=== PATIENT | female | born 1955 | race Caucasian/White ===

== ENCOUNTER 2018-11-22 19:17 | Emergency (ER) | payer BC, SELFPAY ==
[2018-11-22 19:18] VITALS: BP 149/96; PULSE 88; RESP 18; TEMP 36.4; O2SAT 96; BMI 40.1
--- NOTE | 2018-11-22 20:22 | CT_ITS ---
STUDY: CT CERVICAL SPINE WITHOUT CONTRAST REASON FOR EXAM: Female, 63 years old. Trauma RADIATION DOSAGE (If Supplied By Facility): CTDIvol = ( 15.18 ) mGy, DLP = ( 291.75 ) mGycm TECHNIQUE: High resolution transaxial imaging was performed without contrast material. Sagittal and coronal images were reconstructed. Individualized dose optimization techniques were used for this CT. COMPARISON: None FINDINGS: Normal craniovertebral junction. Normal anterior atlantoaxial articulation. Normal odontoid process. Normal cervical lordosis. Normal vertebral bodies and posterior osseous elements. C2-3: Normal endplates. Normal disc height and morphology. Normal central canal and intervertebral neuroforamina. C3-4: Mild spurring at the endplates. Normal disc height and morphology. Normal central canal and intervertebral neuroforamina. C4-5: Mild spurring at the endplates. Normal disc height and morphology. Normal central canal and intervertebral neuroforamina. C5-6: Mild spurring at the endplates. Normal disc height and morphology. Normal central canal and intervertebral neuroforamina. C6-7: Normal endplates. Normal disc height and morphology. Normal central canal and intervertebral neuroforamina. C7-T1: Normal endplates. Normal disc height and morphology. Normal central canal and intervertebral neuroforamina. Normal visualized soft tissue structures. CT/Spine Cervical without Contras IMPRESSION: Mild degenerative changes without acute bony injury of the cervical spine. Electronically Signed: Sharad Bearden DO at 21:06 EDT Tel [phone], Service support ,
--- NOTE | 2018-11-22 20:22 | CT_ITS ---
STUDY: CT BRAIN WITHOUT CONTRAST REASON FOR EXAM: Female, 63 years old. Trauma RADIATION DOSAGE (If Supplied By Facility): CTDIvol = ( 44.99 ) mGy, DLP = ( 812.98 ) mGycm TECHNIQUE: Transaxial CT imaging of the brain was performed without administration of intravenous contrast material. Individualized dose optimization techniques were used for this CT. COMPARISON: No relevant priors. FINDINGS: Right frontal scalp injury. Normal calvarium. Normal size ventricles and extra-axial spaces for the patient's age. Normal white matter tracts of the cerebral hemispheres. Normal basal ganglia and thalami. Normal brainstem. Normal cerebellum. There is no intracranial hemorrhage. There are no findings of an acute ischemic infarction. Normal visualized paranasal sinuses. CT/Brain/Head without Contrast IMPRESSION: Normal unenhanced CT scan of the brain. Right frontal scalp injury. Electronically Signed: Sharad Bearden DO at 20:55 EDT Tel [phone], Service support ,
--- NOTE | 2018-11-22 20:22 | ED.VIS.FALL ---
History of Present Illness Chief Complaint: Laceration Informant: Patient Occurred: Today, Hours - 1 Mechanism/Context: Same level fall, Trip Quality of Pain: Aching Current Severity: Mild Maximum Severity: Mild Associated Symptoms: Negative for: Parasthesias, Weakness, Loss of function, Inability to ambulate, Loss of consciousness, Amnesia Narrative: Patient tripped on concrete and fell hitting her head. She had no loss of consciousness. She bumped her right knee but it is not hurting her and she has been ambulatory on it. Last tetanus was 2-3 years ago. She sustained a major laceration to her forehead. She states it hurts there, she has a minimal headache but she has more pain on her scalp than inside of her head. No changes in her vision or vision symptoms or eye pain. She is on no anticoagulants. No other injuries, but she has some pain in her right neck only when she turns her head. She was placed in c-collar by EMS. Past Medical History - Allergies and Home Meds Allergies/Adverse Reactions: Allergies No Known Allergies Allergy (Verified 11/22/18 19:20) Primary Care Physician: Sherwin Torres DO [Primary Care Provider] - Past Medical History: None Lives: Spouse/ Significant Other Smoking Status: Never smoker Review of Systems General: Denies: Chills, Fever Eyes: Denies: Visual changes - bilaterally, Diplopia ENT: Denies: Rhinorrhea, Sore throat Cardiovascular: Denies: Chest pain, Palpitations Respiratory: Denies: Dyspnea, Cough, Dyspnea on exertion Gastrointestinal: Denies: Abdominal pain, Nausea, Vomiting, Diarrhea, Melena, Hematochezia Genitourinary: Denies: Dysuria, Hematuria, Frequency Musculoskeletal: Denies: Back pain, Extremity Pain Skin: Reports: Abrasions, Wounds. Denies: Rash Neurological: Denies: Headache, Weakness, Numbness Physical Exam Vital Signs/Narrative: Vital Signs Temp Pulse Resp BP Pulse Ox 11/22/18 19:18 97.5 F L 88 18 149/96 H 96 Inital Vital Signs reviewed: Yes General: Well nourished, Well developed, Obese Head: Normocephalic, Trauma - Right forehead and frontal scalp contusion, abrasion, no crepitance or depression. Forehead laceration. Eyes: Perrl, EOMI - Without pain or entrapment ENT: TM's clear, No hemotympanum or drainage, Nasal trauma - Abrasion, nontender, - - Midface stable, nontender, no infraorbital hypoesthesia. Tenderness at laceration within the right eyebrow, it is fairly deep and there is associated hematoma. No periorbital ecchymosis, no exophthalmos or proptosis. Neck: Nontender, Full ROM Cardiovascular: Regular rate, Regular rhythm, No murmurs Respiratory: No distress, CTA bilaterally, Chest nontender Abdomen: Soft, Nontender, Nondistended, Normal bowel sounds Back: Nontender Extremeties: Minor contusion without tenderness anterior right knee, no bony tenderness, full range of motion, all ligaments stable. Otherwise, extremities are atraumatic and full range of motion throughout. Skin: Normal color, No rash Neurological: Alert, Oriented x3, Cranial nerves II-XII grossly intact, Normal Strength, Normal Sensation, - - GCS 15 Psychological: Normal affect Diagnostic/Tx/Re-eval Clinical Impression(s) from Imaging Studies Brain CT 11/22/18 20:22 IMPRESSION: Normal unenhanced CT scan of the brain. Right frontal scalp injury. Electronically Signed: Sharad Bearden DO at 20:55 EDT Tel [phone], Service support , Cervical Spine CT 11/22/18 20:22 IMPRESSION: Mild degenerative changes without acute bony injury of the cervical spine. Electronically Signed: Sharad Bearden DO at 21:06 EDT Tel [phone], Service support , - Medical Decision Making CTs are negative, her cervical spine was cleared she has full range of motion with pain in both directions but no neurologic symptoms. She was monitored in the ED for several hours because of volume, she remained clinically and hemodynamically stable. Her laceration was sutured, follow-up for removal in 5-7 days, she is comfortable with this plan. She has a ride home. Procedures - Lacerations Right eyebrow/forehead Length: 6 cm Depth: Sub Q Shape: Linear Prep: Sterile Conditions, Chlorhexadine, - - irrigated under pressure; no gross wound contamination Laceration Repair: Lidocaine with epi - 5cc Irrigated (ml): 60 Number of Sutures/[place]: 6 Suture Information: Ethilon, Simple, 6-0 Comment: tolerated well. no complications. ED Disposition - Plan for ED Patient: Disposition: Home or Assisted Living Diagnosis: Closed head injury without loss of consciousness, Laceration of forehead, Scalp abrasion, non-infected, Fall from slip, trip, or stumble Instructions: ED Laceration Facial Sutr Tape Referrals: Sherwin Torres DO [Primary Care Provider] - (5-7 days for suture removal)
--- NOTE | 2018-11-22 20:30 | ED.DCSUM_ITS ---
History of Present Illness Chief Complaint: Laceration Informant: Patient Occurred: Today, Hours - 1 Mechanism/Context: Same level fall, Trip Quality of Pain: Aching Current Severity: Mild Maximum Severity: Mild Associated Symptoms: Negative for: Parasthesias, Weakness, Loss of function, Inability to ambulate, Loss of consciousness, Amnesia Narrative: Patient tripped on concrete and fell hitting her head. She had no loss of consciousness. She bumped her right knee but it is not hurting her and she has been ambulatory on it. Last tetanus was 2-3 years ago. She sustained a major laceration to her forehead. She states it hurts there, she has a minimal headache but she has more pain on her scalp than inside of her head. No changes in her vision or vision symptoms or eye pain. She is on no anticoagulants. No other injuries, but she has some pain in her right neck only when she turns her head. She was placed in c-collar by EMS. Past Medical History - Allergies and Home Meds Allergies/Adverse Reactions: Allergies No Known Allergies Allergy (Verified 11/22/18 19:20) Primary Care Physician: Sherwin Torres DO [Primary Care Provider] - Past Medical History: None Lives: Spouse/ Significant Other Smoking Status: Never smoker Review of Systems General: Denies: Chills, Fever Eyes: Denies: Visual changes - bilaterally, Diplopia ENT: Denies: Rhinorrhea, Sore throat Cardiovascular: Denies: Chest pain, Palpitations Respiratory: Denies: Dyspnea, Cough, Dyspnea on exertion Gastrointestinal: Denies: Abdominal pain, Nausea, Vomiting, Diarrhea, Melena, Hematochezia Genitourinary: Denies: Dysuria, Hematuria, Frequency Musculoskeletal: Denies: Back pain, Extremity Pain Skin: Reports: Abrasions, Wounds. Denies: Rash Neurological: Denies: Headache, Weakness, Numbness Physical Exam Vital Signs/Narrative: Vital Signs Temp Pulse Resp BP Pulse Ox 11/22/18 19:18 97.5 F L 88 18 149/96 H 96 Inital Vital Signs reviewed: Yes General: Well nourished, Well developed, Obese Head: Normocephalic, Trauma - Right forehead and frontal scalp contusion, abrasion, no crepitance or depression. Forehead laceration. Eyes: Perrl, EOMI - Without pain or entrapment ENT: TM's clear, No hemotympanum or drainage, Nasal trauma - Abrasion, nontender, - - Midface stable, nontender, no infraorbital hypoesthesia. Te nderness at laceration within the right eyebrow, it is fairly deep and there is associated hematoma. No periorbital ecchymosis, no exophthalmos or proptosis. Neck: Nontender, Full ROM Cardiovascular: Regular rate, Regular rhythm, No murmurs Respiratory: No distress, CTA bilaterally, Chest nontender Abdomen: Soft, Nontender, Nondistended, Normal bowel sounds Back: Nontender Extremeties: Minor contusion without tenderness anterior right knee, no bony tenderness, full range of motion, all ligaments stable. Otherwise, extremities are atraumatic and full range of motion throughout. Skin: Normal color, No rash Neurological: Alert, Oriented x3, Cranial nerves II-XII grossly intact, Normal Strength, Normal Sensation, - - GCS 15 Psychological: Normal affect Diagnostic/Tx/Re-eval Clinical Impression(s) from Imaging Studies Brain CT 11/22/18 20:22 IMPRESSION: Normal unenhanced CT scan of the brain. Right frontal scalp injury. Electronically Signed: Sharad Bearden DO at 20:55 EDT Tel [phone], Service support , Cervical Spine CT 11/22/18 20:22 IMPRESSION: Mild degenerative changes without acute bony injury of the cervical spine. Electronically Signed: Sharad Bearden DO at 21:06 EDT Tel [phone], Service support , - Medical Decision Making CTs are negative, her cervical spine was cleared she has full range of motion with pain in both directions but no neurologic symptoms. She was monitored in the ED for several hours because of volume, she remained clinically and hemodynamically stable. Her laceration was sutured, follow-up for removal in 5- 7 days, she is comfortable with this plan. She has a ride home. Procedures - Lacerations Right eyebrow/forehead Length: 6 cm Depth: Sub Q Shape: Linear Prep: Sterile Conditions, Chlorhexadine, - - irrigated under pressure; no gross wound contamination Laceration Repair: Lidocaine with epi - 5cc Irrigated (ml): 60 Number of Sutures/[place]: 6 Suture Information: Ethilon, Simple, 6-0 Comment: tolerated well. no complications. ED Disposition - Plan for ED Patient: Disposition: Home or Assisted Living Diagnosis: Closed head injury without loss of consciousness, Laceration of forehead, Scalp abrasion, non-infected, Fall from slip, trip, or stumble Instructions: ED Laceration Facial Sutr Tape Referrals: Sherwin Torres DO [Primary Care Provider] - (5-7 days for suture removal)
[2018-11-23 00:01] VITALS: BP 130/78; PULSE 80; RESP 18; O2SAT 98
== END 2018-11-23 00:09 | disposition home or self-care (01) ==
PROVIDERS: Emergency Provider Emergency Medicine; Family Provider Student in an Organized Health Care Education/Training Program; PCP Student in an Organized Health Care Education/Training Program
DX: S01.81XA Laceration without foreign body of other part of head, initial encounter (principal); S01.111A Laceration without foreign body of right eyelid and periocular area, initial encounter; S00.01XA Abrasion of scalp, initial encounter; S80.01XA Contusion of right knee, initial encounter; M54.2 Cervicalgia; R40.2410 Glasgow coma scale score 13-15, unspecified time; W01.0XXA Fall on same level from slipping, tripping and stumbling without subsequent striking against object, initial encounter; Y93.9 Activity, unspecified; Y92.9 Unspecified place or not applicable; E66.9 Obesity, unspecified
CPT/HCPCS: 12014; 70450; 72125; 99285

== ENCOUNTER 2019-01-06 19:10 | Emergency (ER) | payer BC, SELFPAY ==
[2019-01-06 19:10] VITALS: BP 205/96; PULSE 96; RESP 16; TEMP 36.9; O2SAT 97; BMI 40.8
--- NOTE | 2019-01-06 19:43 | RAD_ITS ---
STUDY: X-RAY - RIGHT HAND REASON FOR EXAM: Female, 63 years old. Hand pain TECHNIQUE: 3 view(s) of the hand. COMPARISON: None. FINDINGS: Age-related degenerative changes. No acute fracture or dislocation. Normal mineralization RAD/Hand Min 3 Views IMPRESSION: Degenerative changes without acute finding Electronically Signed: Juan Sheets DO at 20:30 EDT Tel , Service support ,
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
[2019-01-06 21:31] VITALS: BP 153/84; PULSE 95; RESP 18; O2SAT 98
== END 2019-01-06 21:33 | disposition home or self-care (01) ==
PROVIDERS: Emergency Provider Emergency Medicine; Family Provider Student in an Organized Health Care Education/Training Program; PCP Student in an Organized Health Care Education/Training Program
DX: S60.222A Contusion of left hand, initial encounter (principal); S60.221A Contusion of right hand, initial encounter; S60.512A Abrasion of left hand, initial encounter; S60.511A Abrasion of right hand, initial encounter; S50.311A Abrasion of right elbow, initial encounter; V43.52XA Car driver injured in collision with other type car in traffic accident, initial encounter; Y93.89 Activity, other specified; Y92.9 Unspecified place or not applicable; I10 Essential (primary) hypertension; F41.9 Anxiety disorder, unspecified; Z79.899 Other long term (current) drug therapy
CPT/HCPCS: 73130; 99284

== ENCOUNTER 2019-01-08 13:53 | Emergency (ER) | payer BC, SELFPAY ==
[2019-01-08 13:54] VITALS: BP 160/95; PULSE 94; RESP 16; TEMP 36.7; O2SAT 98; BMI 39.2
[2019-01-08] MEDS: HYDROcodone Bitartrate/Apap 5/325 Tablet PO (14:18)
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
--- NOTE | 2019-01-08 15:08 | DCINST.ED_ITS ---
ED Disposition - Plan for ED Patient: Instructions: BACK PAIN (Acute or Chronic) Prescriptions: Hydrocodone Bitart/Apap 5-325 [[place] 5MG-325MG] 1 tab PO Q6H PRN PRN 2 Days #8 tab PRN Reason: Pain Prescription Printed Referrals: Sherwin Torres DO [Primary Care Provider] -
[2019-01-08 15:24] VITALS: BP 156/79; PULSE 79; RESP 18; O2SAT 95
== END 2019-01-08 15:26 | disposition home or self-care (01) ==
LOC: ED 14:57
PROVIDERS: Emergency Provider Emergency Medicine; Family Provider Student in an Organized Health Care Education/Training Program; PCP Student in an Organized Health Care Education/Training Program
DX: S16.1XXA Strain of muscle, fascia and tendon at neck level, initial encounter (principal); V89.2XXA Person injured in unspecified motor-vehicle accident, traffic, initial encounter; Y93.9 Activity, unspecified; Y92.9 Unspecified place or not applicable; M47.812 Spondylosis without myelopathy or radiculopathy, cervical region; M25.512 Pain in left shoulder; I10 Essential (primary) hypertension; F32.9 Major depressive disorder, single episode, unspecified; F41.9 Anxiety disorder, unspecified; Z79.899 Other long term (current) drug therapy
CPT/HCPCS: 72040; 72072; 73030; 99283

== ENCOUNTER 2021-02-04 10:13 | Emergency (ER) | payer MEDICARE, SELFPAY ==
[2021-02-04 10:15] VITALS: BP 136/84; BP 145/73; PULSE 88; PULSE 91; RESP 16; TEMP 36.8; O2SAT 96; O2SAT 97; BMI 40.1
--- NOTE | 2021-02-04 10:23 | ED.VIS.LOWEX ---
HPI History of Present Illness Chief Complaint: Lower Extremity Injury Detail of Chief Complaint: Atraumatic right knee pain Informant: patient Occured/Mechanism Mechanism/Context: No injury and No blunt trauma Onset/Context/Timing Onset: Today Context: Sudden Onset Timing: Continuous Quality of Pain: Sharp Current Severity: Mild Maximum Severity: Mild Associated Symptoms Associated Symptoms: Negative for Parasthesia and Weakness Narrative Narrative: 65-year-old female has had a prior left knee replacement. Today she was getting out of bathtub and when she lifted her right leg she twisted the knee and is now complaining of right knee pain. She denies any fall. She did not go down. She denies any other injuries. Think she did this when she was 15 but no other times. She is never had any surgery to the right knee. Prior to today she said her right knee felt fine. It is more uncomfortable to try to walk on it. She denies any fever. Prior similar symptoms: No Recent Illness/Hospitalization: No PFSH PFSH Medical History Anxiety HTN (hypertension) Home Medications bupropion HCl 150 mg PO DAILY 11/22/18 [History Last Taken Unknown] escitalopram oxalate 30 mg PO DAILY 11/22/18 [History Last Taken Unknown] Allergy/AdvReac Type Severity Reaction Status Date / Time bee venom protein (honey bee) Allergy Other Verified 02/04/21 10:14 Surgical History History of appendectomy History of bilateral carpal tunnel release History of cholecystectomy History of left knee replacement Social History Smoking Status: Never smoker ROS ROS ED ROS Narrative Patient denies recent illness. Review of Systems ROS Unobtainable: Denies due to encephalopathy Constitutional Constitutional ED: Denies chills or fever(s) Eyes Eyes: Denies change in vision ENT ENT ED: Denies ear pain or sore throat Cardiovascular Cardiovascular: Denies chest pain Respiratory/Chest Respiratory/Chest: Denies cough or dyspnea Gastrointestinal Gastrointestinal: Denies abdominal pain, diarrhea, nausea or vomiting Genitourinary Genitourinary ED: Denies dysuria Musculoskeletal Musculoskeletal: Denies myalgias Integumentary Denies rash Neurologic Neurologic: Denies headache(s) Psychiatric Psychiatric: Denies depression Endocrine Endocrinology: Denies polyuria Hematologic/Lymphatic Hematologic/Lymphatic: Denies easy bruising Allergic/Immunologic Allergic/Immunologic ED: Denies urticaria EXAM Physical Exam Narrative Exam Narrative: Older female no acute distress. Vital signs stable afebrile. Exam normal except right knee minimal swelling. No ecchymosis or bruising. No redness or warmth. She is able to flex and extend her right knee. She is extension of 180 degrees. ACL PCL, MCL LCL all appear to be intact. There is no bony deformity. She has a normal DP pulse on her right foot. Dorsi plantar flexion is normal on the right. Achilles tendon is intact. Calves nontender no edema. She has normal flexion-extension of the right hip. Left lower extremity is unremarkable she does have a well-healed prior anterior knee surgical incision from a knee replacement. Otherwise exam unremarkable. She has normal motor strength and sensation of both lower extremities. Const Vital Signs: 02/04/21 10:15 Temperature 98.3 F Temperature Source Temporal Pulse Rate 91 Respiratory Rate 16 Blood Pressure 145/73 H Blood Pressure Mean 97 Pulse Ox 97 Oxygen Delivery Method Room Air Positive well nourished; Negative for unkempt General Appearance ED: NAD; Negative for unkempt HEENT Reports moist mucous membranes normocephalic and atraumatic Eyes PERRL Neck full ROM and supple Thyroid: Negative for tender Chest Wall inspection of chest normal and palpation of chest normal Resp normal respiratory effort, no retractions and clear to auscultation bilaterally Auscultation: Negative for rales, rhonchi or wheezes Cardio regular rate, regular rhythm, S1 normal heart sound, S2 normal heart sound and no murmurs GI non-tender, non-distended and no masses Auscultation: normoactive bowel sounds Palpation: soft; Negative for tender, guarding or rebound tenderness present Back/Spine no CVA tenderness General Back: Negative for CVA tenderness Cervical Spine: Negative for cervical spine tenderness Thoracic Spine / Upper Back: Negative for thoracic spinal tenderness Lumbar Spine / Lower Back: Negative for lumbar spinal tenderness Extremity normal to inspection Extremity Narrative: Except mild swelling right knee. She is able to do flexion extension. Can extend to 100 degrees. Can lift her leg off the bed. Quadriceps patellar tendons intact. No bony deformity. No large effusion. Distally the right ankle and foot are neurovascularly intact. She has normal range of motion of the right hip is nontender. Neuro oriented x3 and moves all extremities Sensorium / Orientation: alert, oriented to person, oriented to place and oriented to time; Negative for orientation impaired Psych mental status grossly normal Appearance: Negative for unkempt Skin no wounds Lesions: no lesions Rashes: no rashes Trauma: Negative for abrasion or laceration MDM MDM MDM Narrative Medical decision making narrative: Patient twisted her knee getting out of the tub x-ray being obtained. I suspect she just sprained her knee. Clinically there is no signs of dislocation and I do not feel it will be any fractures on exam. Patient was offered but does not want anything for pain. Repeat exam at 11:05 AM no change. She has good flexion-extension of the knee. There is no significant effusion. We went over her x-ray results. Radiography Diagnostic Testing: Right knee x-ray interpreted by myself 4 views. Shows no acute abnormality. No fracture. No dislocation. Chronic arthritic changes. Good joint space. No acute abnormality to explain her discomfort. Discharge Plan Triage Chief Complaint: Lower Extremity Injury ED Provider: Robin Brown Dx/Rx/DC Orders Clinical Impression: Sprain of knee Instructions: ED Knee Sprain Prescriptions: No Action escitalopram oxalate 20 MG tablet 30 mg PO DAILY RF: 0 bupropion HCl 300 MG tablet extended release 24 hr 150 mg PO DAILY RF: 0 Primary Care Provider: Sherwin Torres Referrals: Sherwin Torres, [Primary Care Provider] - 1 Week if not improving Activity Restrictions/Additional Instructions: Ice and elevate your right knee to decrease pain and swelling. Tylenol for pain. Motrin, Advil or ibuprofen for pain and swelling. Increase activity slowly as tolerated. Use either your walker or crutches at home. Increase weightbearing as you feel comfortable. Follow-up with your doctor if not getting better. Disposition Disposition: Home, Self Care
--- NOTE | 2021-02-04 10:50 | RAD_ITS ---
STUDY: X-RAY - RIGHT KNEE REASON FOR EXAM: Right knee pain, right knee injury. TECHNIQUE: 4 view(s) of the knee. COMPARISON: None. FINDINGS: Normal visualized distal femur. Normal visualized proximal tibia and fibula. Normal proximal tibiofibular articulation. Normal medial femorotibial compartment. There are small marginal osteophytes with preservation of joint space of the lateral femorotibial compartment. There are marginal osteophytes with severe joint space narrowing of the patellofemoral articulation. There is a small joint effusion. There is patellar enthesopathy. RAD/Knee 4 or More Views IMPRESSION: Arthrosis of the patellofemoral compartment. Small joint effusion. Patellar enthesopathy. Electronically Signed: Marvin Haynes MD at 11:19 EDT Tel , Service support ,
[2021-02-04 11:27] VITALS: BP 145/73
== END 2021-02-04 11:35 | disposition home or self-care (01) ==
PROVIDERS: Emergency Provider Emergency Medicine; PCP Student in an Organized Health Care Education/Training Program
DX: S83.91XA Sprain of unspecified site of right knee, initial encounter (principal); X50.1XXA Overexertion from prolonged static or awkward postures, initial encounter; Y93.E1 Activity, personal bathing and showering; Y92.9 Unspecified place or not applicable; Y99.8 Other external cause status; I10 Essential (primary) hypertension; F41.9 Anxiety disorder, unspecified; Z79.899 Other long term (current) drug therapy
CPT/HCPCS: 73564; 99284

== ENCOUNTER 2021-10-30 13:39 | Inpatient (IN) | payer MEDICARE, SELFPAY ==
[2021-10-30] VITALS (11 sets, daily range): BP systolic 111–172; BP diastolic 61–100; PULSE 79–110; RESP 14–22; TEMP 36.4–39.4; O2SAT 95–100; BMI 36.6; BMI 38.5; BMI 39.1
--- NOTE | 2021-10-30 13:41 | CT_ITS ---
STUDY: CT HEAD STROKE PROTOCOL W/O CONTRAST INJECTION REASON FOR EXAM: Female, 66 years old. Neuro deficit, acute, stroke suspected RADIATION DOSAGE (If Supplied By Facility): CTDIvol = ( 47.6 ) mGy, DLP = ( 907.97 ) mGycm TECHNIQUE: Transaxial CT imaging of the brain was performed without administration of intravenous contrast material. Individualized dose optimization techniques were used for this CT. COMPARISON: Comparison is made with prior study dated 11/22/2018. FINDINGS: Normal soft tissue structures. Normal calvarium. Normal size ventricles and extra-axial spaces for the patient''s age. Normal white matter tracts of the cerebral hemispheres. Normal basal ganglia and thalami. Normal brainstem. Normal cerebellum. There is no intracranial hemorrhage. There are no findings of an acute ischemic infarction. Normal visualized paranasal sinuses. ASPECT score: 10 CT/STROKE Brain/Head without Cont IMPRESSION: Normal unenhanced CT scan of the brain. N.B. : The above Results were Read Back by Khanh Rangel MD to Akira Gaines and understanding confirmed on 10/30/2021 13:54:08 (ET). Electronically Signed: Khanh Rangel MD at 13:55 EDT ,
--- NOTE | 2021-10-30 13:41 | CT_ITS ---
STUDY: CTA HEAD AND NECK WITH CONTRAST REASON FOR EXAM: Female, 66 years old. Neuro deficit, acute, stroke suspected RADIATION DOSAGE (If Supplied By Facility): CTDIvol = ( 17.82 ) mGy, DLP = ( 881.24 ) mGycm TECHNIQUE: CT angiography was performed with a multi-detector CT scanner. Data acquisition was obtained from the skull base through the vertex following intravenous administration of IV 75mL [id number]-[id number]. MIP images were reconstructed from the axial data set. Post-processing of the angiographic images was performed, with multiplanar reformation and 3D reconstruction. Individualized dose optimization techniques were used for this CT. COMPARISON: No relevant priors. FINDINGS: Normal bilateral petrous carotid arteries. Normal right cavernous carotid artery with a normal supraclinoid bifurcation. Normal left cavernous carotid artery with a normal supraclinoid bifurcation. Normal right A1 segments of the anterior cerebral artery. Normal left A1 segments of the anterior cerebral artery. Normal intact anterior communicating artery (ACOM). Normal bilateral A2 segments of the anterior cerebral arteries. Normal right M1 and M2 segments of the middle cerebral arteries, with a normal M1 bifurcation. Normal left M1 and M2 segments of the middle cerebral arteries, with a normal M1 bifurcation. There is a persistent origin of the right posterior cerebral artery with absence of the posterior communicating artery (PCOM). There is a persistent origin of the left posterior cerebral artery with absence of the posterior communicating artery (PCOM). Normal bilateral vertebral arteries. Normal basilar artery with a normal basilar bifurcation. The visualized bilateral superior cerebellar (SCA) arteries are normal. Normal bilateral P1, P2 and visualized P3 segments of the posterior cerebral arteries. There is no demonstrated aneurysm of the [place]. There is no demonstrated abnormality of the visualized brain. AORTIC ARCH: Normal visualized aortic arch. Normal origins of the brachiocephalic, left common carotid, and left subclavian arteries. RIGHT CAROTID ARTERIES: Normal right common carotid artery (CCA). Normal right common carotid bulb. Normal origin of the right internal carotid (ICA) artery without a hemodynamically significant stenosis. Normal visualized cervical portion of the right internal carotid artery. Normal origin of the right external carotid artery (ECA). LEFT CAROTID ARTERIES: Normal left common carotid artery (CCA). Normal left common carotid bulb. Normal origin of the left internal carotid (ICA) artery without a hemodynamically significant stenosis. Normal visualized cervical portion of the left internal carotid artery. Normal origin of the left external carotid artery (ECA). VERTEBRAL ARTERIES: Normal bilateral vertebral arteries. CT/STROKE CTA Head AND Neck W/Con IMPRESSION: Normal CTA Head and neck with contrast. N.B. : The above Results were Read Back by Khanh Rangel MD to Akira Gaines and understanding confirmed on 10/30/2021 14:13:41 (ET). Electronically Signed: Khanh Rangel MD at 14:14 EDT ,
--- NOTE | 2021-10-30 13:41 | EKG12_ITS ---
Test Reason : STROKE TEAM Blood Pressure : / mmHG Vent. Rate : 105 BPM Atrial Rate : 105 BPM P-R Int : 140 ms QRS Dur : 068 ms QT Int : 328 ms P-R-T Axes : 047 046 057 degrees QTc Int : 433 ms Sinus tachycardia Nonspecific ST abnormality Abnormal ECG Confirmed by MATTI ESQUIVEL, RAJIV ([id number]), manager editorial BRITNEY MENENDEZ ([id number]) on 11/02/2021 10:03:18 A M Referred By: AMPARO Confirmed By:CYNTHIA CHINO MD
--- NOTE | 2021-10-30 13:41 | ED.VIS.STROK ---
HPI History of Present Illness Chief Complaint: Neuro S/Sx Informant: patient, spouse/S.O. and EMS Narrative Narrative: Patient presented to urgent care with headache and stroke symptoms, apparently she was lethargic and someone had to knock on her window to get her out of the car when she was there. She was transferred here to the ER by EMS, all of the initial history is from EMS. They state that she complained of a headache starting sometime last night, and she has a left facial droop and left-sided weakness for them that is new. EMS took patient directly to CT given that her airway was stable when I met them in the bay. I reevaluated the patient on arrival to the ED evaluation room. Patient states that she thinks she started getting the headache around 2100 yesterday. She is not able to to provide great history, she is lethargic but her airway is patent. states she rested in her car last night, but when I asked if she stayed at work in her car until this morning they state no but the history is unclear here. She states she works at [employer] and was supposed to work from 5P-10 P last night. It is unknown when the neurologic symptoms started. She states she has had headaches in the past, she does not take anything for them, and they both agree she has never had neurologic symptoms like this with headaches before. [facility] Medical History (Updated 10/30/21 @ 14:[address] Akira Gaines MD) Anxiety Depression HTN (hypertension) Home Medications bupropion HCl 150 mg PO DAILY 11/22/18 [History Last Taken Unknown] escitalopram oxalate 30 mg PO DAILY 11/22/18 [History Last Taken Unknown] Allergy/AdvReac Type Severity Reaction Status Date / Time bee venom protein (honey bee) Allergy Other Verified 10/30/21 13:12 Surgical History History of appendectomy History of bilateral carpal tunnel release History of cholecystectomy History of left knee replacement Social History Smoking Status: Never smoker ROS ROS ED Review of Systems ROS Unobtainable: due to mental status Gastrointestinal Gastrointestinal: Reports nausea Neurologic Neurologic: Reports headache(s) EXAM Physical Exam Const Vital Signs: 10/30/21 13:41 10/30/21 13:43 10/30/21 14:02 Temperature 97.5 F L 98.5 F Temperature Source Temporal Oral Pulse Rate 105 H Respiratory Rate 17 Blood Pressure 171/89 H Blood Pressure Mean 116 Pulse Ox 97 Oxygen Delivery Method Room Air Room Air 10/30/21 14:23 Temperature Temperature Source Pulse Rate 109 H Respiratory Rate 19 H Blood Pressure 172/90 H Blood Pressure Mean 117 Pulse Ox 97 Oxygen Delivery Method Room Air Positive well nourished and well developed General Appearance ED: well developed and NAD HEENT Reports moist mucous membranes normocephalic and atraumatic Eyes PERRL and EOMs intact bilaterally Eyes Narrative: photophobic Neck full ROM, no lymphadenopathy, supple, no meningeal signs and no carotid bruits Resp normal respiratory effort and clear to auscultation bilaterally Cardio regular rate, regular rhythm and no murmurs GI non-tender and non-distended Auscultation: normoactive bowel sounds Palpation: soft Back/Spine no CVA tenderness General Back: other FROM Extremity normal to inspection General Extremety ED: Negative for edema, pulses abnormal or tenderness General Extremity: Negative for edema or pulses abnormal Neuro oriented x3 and no sensory deficits noted Sensorium / Orientation: awake and lethargic Meningeal Signs: no meningeal signs Skin no rashes or lesions noted and no wounds STROKE Vital Signs/Narrative: Vital Signs Temp Pulse Resp BP Pulse Ox 10/30/21 14:23 109 H 19 H 172/90 H 97 10/30/21 14:02 98.5 F 105 H 17 171/89 H 97 10/30/21 13:43 97.5 F L Inital Vital Signs reviewed: Yes NIHSS Initial: 1a Level of Consciousness: 1 1b LOC Questions (Score 2 if aphasic/stupor): 0 1c LOC Commands (Only score 1st attempt): 1 2 Best Gaze (If aphasic, use reflexive mvmts.): 0 3 Visual: 0 4 Facial Palsy: 1 5 Motor Arm Right (UN = amputation/fusion): 0 5 Motor Arm Left: 2 6 Motor Leg Right: 1 6 Motor Leg Left: 2 7 Limb ataxia (Only + if out of proportion): 0 8 Sensory (Aphasia/stupor=0 or 1, coma=2): 0 9 Best Language: 0 10 Dysarthria (mute, coma=2, intubated=UN): 0 11 Extinction and Inattention (only scored if +): 1 Total Score: 9 MDM MDM MDM Narrative Medical decision making narrative: Stroke team was activated prehospital I saw the patient in the EMS bay, and protocols were followed. Patient is not a tPA candidate however, due to timing with her symptoms starting last night, with regards to her headache but we do not know if she was having weakness then or not she cannot provide appropriate history. She does not require intubation at this time. Her elevated blood pressure is consistent with an acute ischemic stroke. She does not have an acute hemorrhage, nor does she have LVO. Plan will be for admission and continued care. Lab Data Attestation: I reviewed the patient's lab results. Labs: Laboratory Results - last 24 hr 10/30/21 10/30/21 10/30/21 13:58 13:58 13:58 WBC 8.5 RBC 4.27 Hgb 12.4 Hct 38.0 MCV 89.0 MCH 29.0 MCHC 32.6 RDW Std Deviation 41.6 RDW Coeff of Zach 12.8 Plt Count 238 MPV 9.8 Immature Gran % (Auto) 0.400 Neut % (Auto) 75.8 H Lymph % (Auto) 17.8 L [place] % (Auto) 5.4 Eos % (Auto) 0.2 Baso % (Auto) 0.4 Absolute Neuts (auto) 6.4 Absolute Lymphs (auto) 1.51 Nucleated RBC % 0 PT 14.7 INR 1.2 APTT 33.8 Sodium 140 Potassium 3.7 Chloride 106 Carbon Dioxide 26.0 Anion Gap 8 BUN 17 Creatinine 0.87 Estim Creat Clear Calc 49.63 Est GFR (MDRD) Af Amer 83 Est GFR (MDRD) Non-Af 69 BUN/Creatinine Ratio 19.5 Glucose 115 H Calcium 8.6 Troponin I High Sens < 3 L Radiography Diagnostic Testing: Clinical Impression(s) from Imaging Studies Brain CT 10/30/21 13:41 IMPRESSION: Normal unenhanced CT scan of the brain. N.B. : The above Results were Read Back by Khanh Rangel MD to Akira Gaines and understanding confirmed on 10/30/2021 13:54:08 (ET). Electronically Signed: Khanh Rangel MD at 13:55 EDT , ADDENDUM: 10/30/21 1402 IMPRESSION: Normal unenhanced CT scan of the brain. N.B. : The above Results were Read Back by Khanh Rangel MD to Akira Gaines and understanding confirmed on 10/30/2021 13:54:08 (ET). Electronically Signed: Khanh Rangel MD at 13:55 EDT , Head/Neck CTA 10/30/21 13:41 IMPRESSION: Normal CTA Head and neck with contrast. N.B. : The above Results were Read Back by Khanh Rangel MD to Akira Gaines and understanding confirmed on 10/30/2021 14:13:41 (ET). Electronically Signed: Khanh Rangel MD at 14:14 EDT , ADDENDUM: 10/30/21 1421 IMPRESSION: Normal CTA Head and neck with contrast. N.B. : The above Results were Read Back by Khanh Rangel MD to Akira Gaines and understanding confirmed on 10/30/2021 14:13:41 (ET). Electronically Signed: Khanh Rangel MD at 14:14 EDT , Rhythm Strip Rhythm Strip: Sinus Tach Rate: 105 Ectopy: None EKG Initial EKG: Attestation: I personally reviewed and interpreted this EKG as follows: Interpretation: No Acute Injury Pattern and Sinus Tachycardia Stroke Documentation Questions Stroke Team Activated: Yes Reviewed Inclusion/Exclusion criteria: Yes Was Patient considered for Endovascular Intervention?: No-CTA negative, determined not to be an endovascular candidate IV Alteplase (t-PA) Administered: No (Not indicated due to timing/last known well) Critical Care Time Critical Care Time: Yes Critical care time (excluding procedures): 30-74 minutes (35 min), Including time spent:, Discussing w/Patient &/or Family/Casket Assembler, Discussing w/Consultants, Arranging Admission or Transfer and Performing Direct Patient Care at Bedside Discharge Plan Dx/Rx/DC Orders Clinical Impression: Acute ischemic right MCA stroke, Cephalgia Disposition Disposition: Acute Care [facility]
--- NOTE | 2021-10-30 13:53 | CM.ED ---
Social Work Note Stroke Alert called. Emotional support provided. Rhonda Godfrey PLAY READER, [employer]PAREL MERCHANDISER
[2021-10-30 14:06] LABS: Absolute Lymphocyte Count 1.51 X10^3/uL (0.83-4.51); Absolute Neutrophil Count 6.4 X10^3/uL (2.0-7.7); Basophil# 0.03 X10^3/uL; Basophil% 0.4 % (0-1); Eosinophil# 0.02 X10^3/uL; Eosinophils% 0.2 % (0-5); Hemoglobin 12.4 g/dL (12.0-15.0); Lymphocyte # 1.51 X10^3/ul (0.83-4.51); Lymphocyte % 17.8 % (19-41); Mean Corp Hgb Conc 32.6 g/dL (32-36); Mean Platelet Vol. 9.8 fl (6.2-12.0); Monocyte# 0.46 X10^3/uL; Monocyte% 5.4 % (0-10); NRBC Flagged by Analyzer 0 % (0-5); Neutrophil # 6.42 X10^3/uL (2.7-7.7); Neutrophil % 75.8 % (47-70); Platelet Count 238 K/mm3 (150-450); RBC Distribution Width CV 12.8 % (11.6-14.6); RBC Distribution Width SD 41.6 fl (35.1-43.9); Red Blood Count 4.27 M/mm3 (4.2-5.4); White Blood Count 8.5 K/mm3 (4.4-11.0)
[2021-10-30 14:16] LABS: International Normalized Ratio 1.2; Prothrombin Time (Protime)PT. 14.7 SECONDS (11.7-14.9)
[2021-10-30 14:17] LABS: Partial Thromboplast Time 33.8 Seconds (24.1-36.2)
[2021-10-30 14:25] LABS: Anion Gap 8 (5-15); BUN 17 mg/dL (7-18); BUN/Creat Ratio 19.5 RATIO (10-20); Calcium,Total 8.6 mg/dL (8.5-10.1); Chloride 106 mmol/L (98-107); Creatinine, Serum 0.87 mg/dL (0.55-1.02); EST Glomerular Filtration Rate 69 mL/min (>60); Est Glom Filt Rate - Afr Amer 83 mL/min (>60); Estimated Creatinine Clearance 49.63 ml/min; Glucose 115 mg/dL (74-106); Potassium 3.7 mmol/L (3.5-5.1); Sodium Level 140 mmol/L (136-145); Troponin-I HS < 3 pg/mL (3.0-54.0)
--- NOTE | 2021-10-30 14:25 | RAD_ITS ---
STUDY: X-RAY CHEST REASON FOR EXAM: Female, 66 years old. Neuro deficit, acute, stroke suspected TECHNIQUE: Single AP portable view of the chest. COMPARISON: None. FINDINGS: EKG electrodes are seen. Mild elevation of the right hemidiaphragm. The lungs are clear. There is no demonstrated pleural abnormality. Normal size heart. Normal mediastinum and west. Normal visualized pulmonary arteries. Normal visualized aortic arch and descending thoracic aorta. There are diffuse degenerative changes of the visualized thoracic spine. Normal visualized ribs, clavicles, and shoulders. There is no demonstrated abnormality of the visualized soft tissue structures of the upper abdomen. RAD/Chest 1 View IMPRESSION: No acute abnormality is seen. Electronically Signed: Khanh Rangel MD at 14:49 EDT ,
[2021-10-30] MEDS: Ondansetron 4 MG/2 ML Vial IV (14:36)
--- NOTE | 2021-10-30 14:37 | HP.PCM.HOS_ITS ---
HPI - General General Date of Admission: 10/30/21 Date of Service: 10/30/21 Chief Complaint: Headache, L sided weakness, facial droop HPI Narrative The patient is a 66 y/o F w/ PMHx: Anxiety and Depression, Obesity, HTN who presents to the [facility] ED on 10/30/21 with history of onset headache starting approximately 2100 the day prior with increasing fatigue, lethargy noted to have been on shift from 5 PM to 10 PM last night but unclear exactly when onset of neurological symptoms occurred with significant left-sided upper and lower extremity weakness with hemineglect as well as facial droop found in her car and awoken with unclear deficits following and potential return to home prior to noted deficits, therefore eventually transitioned to the ED for evaluation. Work-up in the ED included T98.5, heart rate 105, BP 171/89, respiratory rate 17, 97% on room air, CBC with WC 8.5, hemoglobin 12.4, platelet 238 without marked shift, unremarkable coags, BMP with glucose 115, troponin less than 3, CT of the brain with no acute intracranial findings, CTA head neck unremarkable, EKG with sinus tachycardia with no acute evidence of ischemia. Patient NIH stroke scale with a score of 9 secondary to level of consciousness, commands, facial palsy, left upper extremity, left lower extremity, right lower extremity as well as extinction/inattention. Stroke team was activated prehospital however upon ED physician evaluation patient was not a tPA candidate secondary to symptom onset the evening prior. The ED patient notes feeling weak and fatigued but otherwise denies any recent acute illnesses. [facility] Medical History (Updated 10/30/21 @ 14:[address] Alison Gipson MD) Anxiety Depression HTN (hypertension) Obesity Home Medications bupropion HCl 150 mg PO DAILY 11/22/18 [History Last Taken Unknown] escitalopram oxalate 30 mg PO DAILY 11/22/18 [History Last Taken Unknown] Allergy/AdvReac Type Severity Reaction Status Date / Time bee venom protein (honey bee) Allergy Other Verified 10/30/21 13:12 Family History (Updated 10/30/21 @ 14:[address] Alison Gipson MD) Mother Anxiety Cancer Father Diabetes Surgical History History of appendectomy History of bilateral carpal tunnel release History of cholecystectomy History of left knee replacement Social History (Updated 10/30/21 @ 14:[address] Alison Gipson MD) household members: spouse Smoking Status: Never smoker alcohol intake: never substance use type: does not use ROS ROS Narrative Admission Review of Systems: CONSTITUTIONAL: No weight loss, fever, chills, + weakness or fatigue. HEENT: + L facial droop. Eyes: No visual loss, blurred vision, double vision or yellow sclerae. Ears, Nose, Throat: No hearing loss, sneezing, congestion, runny nose or sore throat. SKIN: No rash or itching, lesions, wounds. CARDIOVASCULAR: No chest pain, chest pressure or chest discomfort, palpitations, edema, orthopnea, syncopal events. RESPIRATORY: No shortness of breath, cough or sputum, wheezing, hemoptysis. GASTROINTESTINAL: No anorexia, nausea, vomiting or diarrhea, abdominal pain, melena, BRBPR. GENITOURINARY: No dysuria, frequency, urgency or retention. NEUROLOGICAL: + BASIL/LL extremity weakness, L facial droop, hemineglect, No headache, dizziness, syncope, paralysis, ataxia, numbness or tingling in the extremities, focal weakness, change in bowel or bladder control, seizure. MUSCULOSKELETAL: No muscle, back pain, joint pain or stiffness. HEMATOLOGIC: No anemia, bleeding or bruising. LYMPHATICS: No enlarged nodes. No history of splenectomy. PSYCHIATRIC: + history of depression or anxiety. ENDOCRINOLOGIC: No reports of sweating, cold or heat intolerance. No polyuria or polydipsia. ALLERGIES: No history of asthma, hives, eczema or rhinitis. Vital Signs Vital Signs Vital Signs: 10/30/21 13:41 10/30/21 13:43 10/30/21 14:02 Temperature 97.5 F L 98.5 F Temperature Source Temporal Oral Pulse Rate 105 H Respiratory Rate 17 Blood Pressure 171/89 H Blood Pressure Mean 116 Pulse Ox 97 Oxygen Delivery Method Room Air Room Air 10/30/21 14:23 Temperature Temperature Source Pulse Rate 109 H Respiratory Rate 19 H Blood Pressure 172/90 H Blood Pressure Mean 117 Pulse Ox 97 Oxygen Delivery Method Room Air Weight Weight: 210 lb 8.663 oz Body Mass Index (BMI) 38.5 Physical Exam Narrative Physical Examination: General: Awake, alert although does appear fatigued but is not specifically lethargic, oriented x 3 appropriately and remains cooperative, seated upright in the ED bed, fatigued appearing. Skin: Normal color, normal turgor, no icterus, no cyanosis. HEENT: AT/NC, EOMI, PERRLA, mildly dry MM, left facial droop present with some correction with smile, no carotid bruits or JVD noted. Lungs: Diminished, greater bases, moderate effort, no rales, ronchi or wheezing. Heart: Currently mildly tachycardic with regular rhythm; no gallop, rub audible. Abdomen: Soft, obese, NTTP, ND, mildly hyperactive BS, no obvious evidence of HSM however habitus makes evaluation difficult. Extremities: No cyanosis, clubbing, or edema. Neurological: Patient awake, alert, oriented as noted, cognitive function seems to be improving, nearing baseline intact from discussion with spouse; pupils equally reactive to light and accommodation, cranial nerves grossly normal e xcept noted left-sided mild facial droop with some correction with smiling, moving all extremities except significant left upper extremity 3-4 out of 5 and left lower extremity 2 out of 5 weakness, equivocal Babinski, presence of hemineglect. Psychiatric: Affect appears flat, fatigued, no acute evidence of depressive or anxiety feelings. Results Lab / Micro Data Result Diagrams: 10/30/21 13:58 10/30/21 13:58 Labs: Laboratory Results - last 24 hr 10/30/21 13:58: WBC 8.5, RBC 4.27, Hgb 12.4, Hct 38.0, MCV 89.0, MCH 29.0, MCHC 32.6, RDW Std Deviation 41.6, RDW Coeff of Zach 12.8, Plt Count 238, MPV 9.8, Immature Gran % (Auto) 0.400, Neut % (Auto) 75.8 H, Lymph % (Auto) 17.8 L, Cocke % (Auto) 5.4, Eos % (Auto) 0.2, Baso % (Auto) 0.4, Absolute Neuts (auto) 6.4, Absolute Lymphs (auto) 1.51, Nucleated RBC % 0 10/30/21 13:58: PT 14.7, INR 1.2, APTT 33.8 10/30/21 13:58: Sodium 140, Potassium 3.7, Chloride 106, Carbon Dioxide 26.0, Anion Gap 8, BUN 17, Creatinine 0.87, Estim Creat Clear Calc 49.63, Est GFR ( MDRD) Af Amer 83, Est GFR (MDRD) Non-Af 69, BUN/Creatinine Ratio 19.5, Glucose 115 H, Calcium 8.6, Troponin I High Sens < 3 L Rhythm Strip Rhythm Strip: Sinus Tach Rate: 105 Ectopy: None Radiology Impression Brain CT 10/30/21 13:41 IMPRESSION: Normal unenhanced CT scan of the brain. N.B. : The above Results were Read Back by Khanh Rangel MD to Akira Gaines and understanding confirmed on 10/30/2021 13:54:08 (ET). Electronically Signed: Khanh Rangel MD at 13:55 EDT , ADDENDUM: 10/30/21 1402 IMPRESSION: Normal unenhanced CT scan of the brain. N.B. : The above Results were Read Back by Khanh Rangel MD to Akira Gaines and understanding confirmed on 10/30/2021 13:54:08 (ET). Electronically Signed: Khanh Rangel MD at 13:55 EDT , Head/Neck CTA 10/30/21 13:41 IMPRESSION: Normal CTA Head and neck with contrast. N.B. : The above Results were Read Back by Khanh Rangel MD to Akira Gaines and understanding confirmed on 10/30/2021 14:13:41 (ET). Electronically Signed: Khanh Rangel MD at 14:14 EDT , ADDENDUM: 10/30/21 1421 IMPRESSION: Normal CTA Head and neck with contrast. N.B. : The above Results were Read Back by Khanh Rangel MD to Akira Gaines and understanding confirmed on 10/30/2021 14:13:41 (ET). Electronically Signed: Khanh Rangel MD at 14:14 EDT , Assessment & Plan Assessment/Plan (1) Acute ischemic right MCA stroke: PLAN: The patient is a 66 y/o F w/ PMHx: Anxiety and Depression, Obesity, HTN who presents to the [facility] ED on 10/30/21 with history of onset headache starting approximately 2100 the day prior with increasing fatigue, lethargy noted to have been on shift from 5 PM to 10 PM last night but unclear exactly when onset of neurological symptoms occurred with significant left-sided upper and lower extremity weakness with hemineglect as well as facial droop found in her car and awoken with unclear deficits following and potential return to home prior to noted deficits, therefore eventually transitioned to the ED. #1. Left-sided weakness, facial droop concerning for CVA: Will admit to PCU, will obtain MRI Brain, ECHO, PT/OT/Speech/Nutrition evaluation per protocol. Will consult Neurology for evaluation once evaluation further obtain. Will allow permissive HTN, maintain on asa, add statin w/ AM FLP, fall precautions. Magnesium, TSH, FLP, hemoglobin A1c will be obtained. #2. Hypertension: We will continue permissive hypertension given acute presentation number 1, as needed agents per protocol. #3. Anxiety and depression: We will continue escitalopram and bupropion if oral intake allowed following swallow evaluation. #4. Obesity: Weight loss and lifestyle changes encouraged, nutrition consulted. #5. DVT prophylaxis: SCDs, Lovenox. Charges/Coding Visit Charges Inpatient E&M: 12380 Init Hosp L3
[2021-10-30 15:06] LABS: Magnesium 1.8 mg/dL (1.6-2.6)
--- NOTE | 2021-10-30 16:37 | ECHOCS_ITS ---
Reason For Study: CVA Procedure This was a 2D Doppler, Color Flow transthoracic echocardiogram. The study was technically difficult. Contrast injection was performed. Exam performed portable in patient room. Left Ventricle The estimated ejection fraction is 65 %. No evidence for diastolic dysfunction. Right Ventricle Normal RV size. Normal systolic function. Atria Normal left atrium. Normal right atrium. No doppler evidence for ASD. Bubble contrast study negative for right to left interatrial shunt. Mitral Valve There is no mitral valve stenosis. Trivial mitral valve insufficiency. Tricuspid Valve There is no tricuspid stenosis. Mild tricuspid valve insufficiency. Pulmonary artery systolic pressure is 20 mmHg. Aortic Valve Aortic sclerosis, no stenosis. Trisinus/trileaflet aortic valve. There is no aortic stenosis. No aortic valve insufficiency. Pulmonic Valve There is no pulmonic valvular stenosis. No pulmonic valve insufficiency. Great Vessels Normal aortic root. Pericardium/Pleural No pericardial effusion. Medication Diluted definity 2ml given slow IV push to enhance endocardial definition. Performed a rapid injection of agitated mix of 9 cc saline and 1cc air to assess for atrial septal defect. MMode/2D Measurements & Calculations LVIDd: 4.0 cm IVSd: 1.2 cm LA dimension: 3.9 cm LVIDs: 2.3 cm LVPWd: 1.2 cm RVDd: 3.3 cm FS: 42.0 % LAV(MOD-bp): 53.6 ml LA A4 area: 17.1 cm2 RA A4 area: 14.0 cm2 LAV(MOD-bp) Indexed: 27.6 ml/m2 LAV(MOD-sp2): 61.6 ml LAV(MOD-sp4): 47.4 ml Time Measurements MV dec time: 0.27 sec Doppler Measurements & Calculations MV E max charli: 69.5 cm/sec Lat Peak E' Charli: 10.3 cm/sec Med Peak E' Charli: 7.6 cm/sec MV A max charli: 85.6 cm/sec E/E' lat: 6.7 E/E' med: 9.2 MV E/A: 0.81 MV V2 max: 89.2 cm/sec MV P1/2t max charli: 89.9 cm/sec Ao V2 max: 97.4 cm/sec MV max P.2 mmHg MV P1/2t: 66.6 msec Ao max P.8 mmHg MV V2 mean: 50.6 cm/sec MV dec slope: 395.4 cm/sec2 MV mean P.2 mmHg MV V2 VTI: 25.3 cm MVA(P1/2t): 3.3 cm2 LV V1 max: 76.6 cm/sec PA V2 max: 67.9 cm/sec TR max charli: 206.5 cm/sec LV V1 max P.3 mmHg TR max P.0 mmHg ECHO/Echo Complete W/ Contrast Interpretation Summary The estimated ejection fraction is 65 %. No evidence for diastolic dysfunction. Trivial mitral valve insufficiency. Bubble contrast study negative for right to left interatrial shunt. Ordering Physician: Alison Gipson Referring Physician: MANJINDER LONGORIA Performed By: Calixto Torre [facility]
[2021-10-30 17:13] LABS: Hemoglobin A1c 5.7 % (3.8-5.6)
[2021-10-30 17:14] LABS: Thyroid Stim Hormone (TSH) 0.48 uIU/mL (0.358-3.74)
[2021-10-30] MEDS: Acetaminophen 325 MG Tablet 650 MG PO (17:27)
[2021-10-30] MEDS: 0.9% Normal Saline 1,000 ML 100 ML IV (17:28)
--- NOTE | 2021-10-30 19:00 | MRI_ITS ---
EXAM: MR Head Without Intravenous Contrast CLINICAL INDICATION: 66 years old, Female; CVA TECHNIQUE: Multiplanar and multisequence MR images of the brain were obtained without intravenous contrast. This report was created using [employer] report generation technology. COMPARISON: Head CT dated 10/30/2021. FINDINGS: Brain and extra-axial spaces: Unremarkable. No intra- or extra-axial hemorrhage. No intracranial mass or mass effect. Posterior fossa structures are unremarkable. Ventricles are appropriate for age. No hydrocephalus. Basal cisterns are patent. Diffusion-weighted imaging is negative for acute or subacute infarct. Sella: Unremarkable. Normal sella turcica, pituitary gland, infundibular stalk, optic chiasm and hypothalamus. Auditory system: Unremarkable. The internal auditory canals are patent. Bones/joints: Unremarkable. No discrete lytic or blastic abnormalities. Sinuses: Unremarkable as visualized. Clear. Mastoid air cells: Unremarkable as visualized. Clear. Orbits: Unremarkable as visualized. Both globes, extraocular muscles, optic nerves and retrobulbar fat appear unremarkable. Vasculature: Unremarkable as visualized. Normal flow voids in the major intracranial circulation. MRI/Brain without Contrast IMPRESSION: No evidence of acute or subacute infarct. Electronically Signed: Hiram Hill MD at 20:46 EDT ,
[2021-10-30] MEDS: Ibuprofen 600 MG Tablet PO (21:20)
[2021-10-30] MEDS: BENZOCAINE/MENTHOL 1 LOZENGE MUCOUS MEM (21:21)
[2021-10-30] MEDS: 0.9% Saline Lock 10 ML Syringe IV (21:22)
[2021-10-30] MEDS: Atorvastatin Calcium 80 MG Tablet PO (21:22)
[2021-10-31] VITALS (9 sets, daily range): BP systolic 118–139; BP diastolic 62–76; PULSE 62–86; RESP 16–18; TEMP 36.4–36.9; O2SAT 96–100; BMI 39.1
[2021-10-31] MEDS: Acetaminophen 325 MG Tablet 650 MG PO ×2 (04:30→12:52)
[2021-10-31] MEDS: BENZOCAINE/MENTHOL 1 LOZENGE MUCOUS MEM ×2 (04:31→12:52)
[2021-10-31 06:37] LABS: Absolute Lymphocyte Count 2.37 X10^3/uL (0.83-4.51); Absolute Neutrophil Count 3.3 X10^3/uL (2.0-7.7); Basophil# 0.03 X10^3/uL; Basophil% 0.5 % (0-1); Eosinophil# 0.05 X10^3/uL; Eosinophils% 0.8 % (0-5); Hematocrit 37.6 % (37-47); Hemoglobin 12.1 g/dL (12.0-15.0); Lymphocyte # 2.37 X10^3/ul (0.83-4.51); Lymphocyte % 37.6 % (19-41); Mean Corp Hgb Conc 32.2 g/dL (32-36); Mean Corpuscular Hgb 28.5 pg (27.0-32.0); Mean Corpuscular Volume 88.7 fL (81-99); Monocyte# 0.51 X10^3/uL; Monocyte% 8.1 % (0-10); NRBC Flagged by Analyzer 0 % (0-5); Neutrophil # 3.33 X10^3/uL (2.7-7.7); Neutrophil % 52.7 % (47-70); Platelet Count 216 K/mm3 (150-450); RBC Distribution Width SD 42.3 fl (35.1-43.9); Red Blood Count 4.24 M/mm3 (4.2-5.4); White Blood Count 6.3 K/mm3 (4.4-11.0)
--- NOTE | 2021-10-31 06:57 | PCM.PN.HOSP ---
Subjective Subjective Patient overnight with resolution of her neurological symptoms. Patient did have MRI of the brain which demonstrated no acute stroke. Patient complaints this morning are worsened frontal headache with pressure associated and she notes that she is has a similar type of sinus infection with headache this time of year. Discussed currently given no evidence of acute stroke concerns for possible complex migraine although she denies history of any migraines, possible very atypical seizure presentation as well. Discussed further plan of care and further imaging as well as labs to which she is amenable. Patient denies fevers, chills, nausea, emesis, abdominal pain, chest pain or dyspnea. Objective Data Objective Data Vital Signs: Vital Signs Temp Pulse Resp BP Pulse Ox 98.4 F 76 16 118/73 97 10/31/21 03:00 10/31/21 04:00 10/31/21 03:00 10/31/21 03:00 10/31/21 03:00 Oxygen Delivery Method Room Air Weight: 208 lb 1.862 oz Body Mass Index (BMI) 39.1 Intake & Output: Intake and Output for Last 24 Hours 10/29/21 10/30/21 10/31/21 23:59 23:59 23:59 Intake Total 240 / 893.33 1000.00 / 1000.00 Balance 240 / 893.33 1000.00 / 1000.00 Lab / Micro Data Result Diagrams: 10/31/21 05:25 10/31/21 05:25 Labs: Laboratory Results - last 24 hr 10/30/21 13:58: WBC 8.5, RBC 4.27, Hgb 12.4, Hct 38.0, MCV 89.0, MCH 29.0, MCHC 32.6, RDW Std Deviation 41.6, RDW Coeff of Zach 12.8, Plt Count 238, MPV 9.8, Immature Gran % (Auto) 0.400, Neut % (Auto) 75.8 H, Lymph % (Auto) 17.8 L, Hardee % (Auto) 5.4, Eos % (Auto) 0.2, Baso % (Auto) 0.4, Absolute Neuts (auto) 6.4, Absolute Lymphs (auto) 1.51, Nucleated RBC % 0 10/30/21 13:58: PT 14.7, INR 1.2, APTT 33.8 10/30/21 13:58: Sodium 140, Potassium 3.7, Chloride 106, Carbon Dioxide 26.0, Anion Gap 8, BUN 17, Creatinine 0.87, Estim Creat Clear Calc 49.63, Est GFR (MDRD) Af Amer 83, Est GFR (MDRD) Non-Af 69, BUN/Creatinine Ratio 19.5, Glucose 115 H, Calcium 8.6, Troponin I High Sens < 3 L 10/30/21 13:58: Magnesium 1.8 10/30/21 13:58: TSH 0.48 10/30/21 13:58: Hemoglobin A1c 5.7 H 10/31/21 05:25: WBC 6.3, RBC 4.24, Hgb 12.1, Hct 37.6, MCV 88.7, MCH 28.5, MCHC 32.2, RDW Std Deviation 42.3, RDW Coeff of Zach 13.0, Plt Count 216, MPV 10.0, Immature Gran % (Auto) 0.300, Neut % (Auto) 52.7, Lymph % (Auto) 37.6, Hardee % (Auto) 8.1, Eos % (Auto) 0.8, Baso % (Auto) 0.5, Absolute Neuts (auto) 3.3, Absolute Lymphs (auto) 2.37, Nucleated RBC % 0 Radiography Diagnostic Testing: Radiology Impression Brain CT 10/30/21 13:41 IMPRESSION: Normal unenhanced CT scan of the brain. N.B. : The above Results were Read Back by Khanh Rangel MD to Akira Gaines and understanding confirmed on 10/30/2021 13:54:08 (ET). Electronically Signed: Khanh Rangel MD at 13:55 EDT , Head/Neck CTA 10/30/21 13:41 IMPRESSION: Normal CTA Head and neck with contrast. N.B. : The above Results were Read Back by Khanh Rangel MD to Akira Gaines and understanding confirmed on 10/30/2021 14:13:41 (ET). Electronically Signed: Khanh Rangel MD at 14:14 EDT , Chest X-Ray 10/30/21 14:25 IMPRESSION: No acute abnormality is seen. Electronically Signed: Khanh Rangel MD at 14:49 EDT , Brain MRI 10/30/21 19:00 IMPRESSION: No evidence of acute or subacute infarct. Electronically Signed: Hiram Hill MD at 20:46 EDT , Rhythm Strip Rhythm Strip: Sinus Tach Rate: 105 Ectopy: None Physical Exam Narrative Physical Examination: General: Awake, alert, oriented x 3, appears improved from day prior, complaining of a frontal headache increased from day prior with some pressure associated. Skin: Normal color, normal turgor, no icterus, no cyanosis. HEENT: AT/NC, EOMI, PERRLA, mildly dry MM, left facial droop is completely resolved, mild erythema to the OP with stippling, some tenderness to palpation of the frontal sinus region. Lungs: Diminished, greater bases, moderate effort, no rales, ronchi or wheezing. Heart: Improved, regular rate with regular rhythm; no gallop, rub audible. Abdomen: Soft, obese, NTTP, ND, normalized BS. Extremities: No cyanosis, clubbing, or edema. Neurological: Patient awake, alert, oriented as noted, cognitive function improved, back to baseline; pupils equally reactive to light and accommodation, cranial nerves grossly normal, completely resolved mild left-sided facial droop, moving all extremities, prior left-sided mild hemiplegia is resolved, equivocal Babinski, no further neglect. Psychiatric: Affect appears improved, smiling, more interactive, no acute evidence of depressive or anxiety feelings. Assessment & Plan Assessment/Plan (1) Acute ischemic right MCA stroke: PLAN: The patient is a 66 y/o F w/ PMHx: Anxiety and Depression, Obesity, HTN who presents to the [facility] ED on 10/30/21 with history of onset headache starting approximately 2100 the day prior with increasing fatigue, lethargy noted to have been on shift from 5 PM to 10 PM last night but unclear exactly when onset of neurological symptoms occurred with significant left-sided upper and lower extremity weakness with hemineglect as well as facial droop found in her car and awoken with unclear deficits following and potential return to home prior to noted deficits, therefore eventually transitioned to the ED. #1. Left-sided weakness, facial droop, unclear etiology, Acute CVA RULED OUT, possible New Onset Complex Migraine versus Seizure, confounded by suspected concurrent Acute Sinus Infection: Admitted to PCU, MRI Brain w/ no acute evidence of infarction, ECHO, PT/OT/Speech/Nutrition evaluation per protocol. Given patient worsened frontal headache and pain with pressure with postnasal drip and OP mild erythema will start Augmentin and Flonase regimen as certainly could also be contributing. Patient underwent neurology evaluation and recommended additionally to obtain MRV which has been ordered as well as EEG and agreed with initiation of IV VPA 500mg Q6 hours, IV Decadron 4mg Q6 hours, IV Toradol 15 mg q 8h x 5 doses as well as low dose neurotin 100 mg TID. Will maintain on aspiration and fall precautions. Magnesium 1.8, TSH 0.48, FLP w/ TG 88, T cholesterol 160, LDL 105, VLDL 18, HDL 37, hemoglobin A1c 5.7% consistent with low end pre-diabetes mellitus type II. #2. Evidence Pre-Diabetes mellitus: HgbA1c 5.7%, will transition to ADA diet, will hold on accu checks/ISS. #3. Hypertension: Given MRI brain without acute findings if appropriate will add HTN regimen, currently BP normal range, no home regimen but low threshold to add if needed, PRN IV hydralazine. #4. Anxiety and depression: We will continue escitalopram and bupropion if oral intake allowed following swallow evaluation. #5. Obesity: Weight loss and lifestyle changes encouraged, nutrition consulted. #6. DVT prophylaxis: SCDs, Lovenox. Charges/Coding Visit Charges Inpatient E&M: 92861 Subs Hosp L3
--- NOTE | 2021-10-31 07:02 | TELEMED_ITS ---
[facility] Telemed has confirmed receipt of a request for visit. This document confirms receipt of the order initiating the consult. To find the results of the consultation, please view the patient's reports for the scanned Telemed Consult.
[2021-10-31 07:32] LABS: ALB/GLOB Ratio 1.1 RATIO (0.9-2.4); AST(SGOT) 13 U/L (15-37); Alanine Aminotransfer ALT/SGPT 15 U/L (13-56); Alkaline Phosphatase 57 U/L (45-117); Anion Gap 6 (5-15); BUN 15 mg/dL (7-18); BUN/Creat Ratio 20.8 RATIO (10-20); Calcium,Total 8.1 mg/dL (8.5-10.1); Chloride 113 mmol/L (98-107); Cholesterol 160 mg/dL (200); Creatinine, Serum 0.72 mg/dL (0.55-1.02); EST Glomerular Filtration Rate 86 mL/min (>60); Est Glom Filt Rate - Afr Amer 104 mL/min (>60); Estimated Creatinine Clearance 43.18 ml/min; Globulin 2.7 g/dL (2.2-4.2); Glucose 108 mg/dL (74-106); High Density Lipoprotein 37 mg/dL; Potassium 3.4 mmol/L (3.5-5.1); Protein, Total 5.7 g/dL (6.4-8.2); Sodium Level 143 mmol/L (136-145); Triglycerides 88 mg/dL; Very Low Density Lipoprotein 18 mg/dL (5-40)
--- NOTE | 2021-10-31 09:46 | MRI_ITS ---
STUDY: EXAMINATION - MRV BRAIN WITHOUT CONTRAST REASON FOR EXAM: Female, 66 years old. Neurology requested, consideration clot. TECHNIQUE: 3D [id number] (TOF) imaging was performed in a 1.5 sunny MRI scanner. COMPARISON: None. FINDINGS: Normal flow within the superior sagittal sinus. Normal flow within the superficial cortical veins. Normal flow within the paired internal cerebral veins, vein of Chato and straight sinus. Normal flow within the bilateral transverse and sigmoid sinuses. The left transverse sinus and left sigmoid sinus are developmentally hypoplastic. Normal flow within the bilateral jugular bulbs. 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 Electronically Signed: Montana Mac MD at 11:34 EDT ,
[2021-10-31] MEDS: dexAMETHasone 4 MG/ML Vial IV ×2 (10:51→17:35)
[2021-10-31] MEDS: Ketorolac 15 MG/ML Vial IV ×3 (10:52→21:47)
[2021-10-31] MEDS: 0.9% Saline Lock 10 ML Syringe IV ×4 (10:53→23:20)
[2021-10-31] MEDS: Enoxaparin 40 MG/0.4 ML Syringe SC (10:54)
[2021-10-31] MEDS: Aspirin 81 MG TAB.CHEW PO (10:56)
[2021-10-31] MEDS: Escitalopram Oxalate 10 MG Tablet 30 MG PO (10:56)
[2021-10-31] MEDS: buPROPion (XL) 150 MG TABLET.XL PO (10:57)
[2021-10-31] MEDS: Potassium Chloride Oral Tablet 20 MEQ 40 MEQ PO (11:04)
[2021-10-31] MEDS: Fluticasone 0.05% 1 SPRAY NASAL.SRY NASAL ×2 (11:05→21:45)
[2021-10-31] MEDS: Amox/Clavulanate 875 MG Tablet PO ×2 (11:05→21:45)
[2021-10-31] MEDS: Gabapentin 100 MG Capsule PO ×2 (11:05→17:36)
--- NOTE | 2021-10-31 13:31 | CASEMGMT ---
Social Work Pt completed PHQ-9 with pt, she scored a 0, no concerns identified on PHQ-9 for depression at this time. BRENNA Gomes
--- NOTE | 2021-10-31 14:15 | CASEMGMT ---
RN ANNETTA CAPTAIN ASSISTANT CM to room to meet with patient for initial transition planning/care coordination assessment. BERNABE LITTLEJOHN introduced self and role at [facility].? Pt voices understanding and consents to assessment at this time.? Pt resting in bed in no distress at this time.? Pt is A/O at this time and answers all questions appropriately.?? Care providers, pharmacy, and demographics verified/updated at this time. PCP: Dr Torres Specialists: none Preferred Pharmacy: [facility] Insurance: [employer] MCR Prescription Benefit:? Yes Living Will/HPOA:? States does not have LW or HCPOA .? Interested in more information but states does not want to talk with SW at this time to complete paperwork.? Provided information on advanced directives and given Social Service rac card with number to call if chooses in the future to utilize [facility] social work for advanced directive completion. LNOK: Nasir Living Arrangements: Lives w/her in one-story home w/2 steps to enter. Works part-time @ [employer]. Independent @ baseline and uses no DME to ambulate. Transportation: Pt states drives self and states no transportation concerns at this time.? DME: ? States has the following DME:? tub bench, grab bars. Pt also has a cane and a walker available, but does not use @ her baseline. Pt states no need for further DME at this time.? HHC/SNF: No hx of either. PT/OT notes reviewed and discussed options w/pt. She states has been using a walker since hospitalization and has had back issues in the past. Pt declines HHC. Pt has done OP therapy @ [facility] on [address] and is interested in doing OP therapy @ discharge. Script prepared and placed on pt's chart. Dr Gipson made aware. Script will need signed by and given to pt @ discharge. Pt wishes to return home and states has no concerns with going home at time of discharge.? Pt voices no further concerns/needs at this time.? PLAN: ?Home w/OP therapy. Stefano ALVARADO RN, CM
[2021-10-31] MEDS: Atorvastatin Calcium 80 MG Tablet PO (21:45)
[2021-11-01] VITALS (11 sets, daily range): BP systolic 107–136; BP diastolic 58–85; PULSE 76–91; RESP 16–18; TEMP 36.6–36.8; O2SAT 94–99; BMI 39.1
[2021-11-01] MEDS: dexAMETHasone 4 MG/ML Vial IV ×4 (00:12→17:41)
--- NOTE | 2021-11-01 05:35 | PCM.PN.HOSP ---
Subjective Subjective Patient with no recurrence of her neurological symptoms overnight and she does report that her headache is improving however she still reports it is being 2 out of 10 in severity. Per discussion with neurology the day prior noted intention to continue current regimen and given it is improving we will continue this until hopefully it resolves. Discussed still awaiting EEG read although lower suspicion for seizure as etiology. Patient denies fevers, chills, nausea, emesis, abdominal pain, chest pain or dyspnea. Objective Data Objective Data Vital Signs: Vital Signs Temp Pulse Resp BP Pulse Ox 97.9 F 76 16 136/85 H 94 11/01/21 03:45 11/01/21 03:45 11/01/21 03:45 11/01/21 03:45 11/01/21 03:45 Oxygen Delivery Method Room Air Weight: 208 lb 1.862 oz Body Mass Index (BMI) 39.1 Intake & Output: Intake and Output for Last 24 Hours 10/30/21 10/31/21 11/01/21 23:59 23:59 23:59 Intake Total 240 / 893.33 1790.00 / 2230.00 495 / 495 Balance 240 / 893.33 1790.00 / 2230.00 495 / 495 Lab / Micro Data Result Diagrams: 11/01/21 07:35 10/31/21 05:25 Labs: Laboratory Results - last 24 hr 10/31/21 05:25: WBC 6.3, RBC 4.24, Hgb 12.1, Hct 37.6, MCV 88.7, MCH 28.5, MCHC 32.2, RDW Std Deviation 42.3, RDW Coeff of Zach 13.0, Plt Count 216, MPV 10.0, Immature Gran % (Auto) 0.300, Neut % (Auto) 52.7, Lymph % (Auto) 37.6, Cooke % (Auto) 8.1, Eos % (Auto) 0.8, Baso % (Auto) 0.5, Absolute Neuts (auto) 3.3, Absolute Lymphs (auto) 2.37, Nucleated RBC % 0 10/31/21 05:25: Sodium 143, Potassium 3.4 L, Chloride 113 H, Carbon Dioxide 24.0, Anion Gap 6, BUN 15, Creatinine 0.72, Estim Creat Clear Calc 43.18, Est GFR (MDRD) Af Amer 104, Est GFR (MDRD) Non-Af 86, BUN/Creatinine Ratio 20.8 H, Glucose 108 H, Calcium 8.1 L, Total Bilirubin 1.20 H, AST 13 L, ALT 15, Alkaline Phosphatase 57, Total Protein 5.7 L, Albumin 3.0 L, Globulin 2.7, Albumin/Globulin Ratio 1.1, Triglycerides 88, Cholesterol 160, LDL Cholesterol 105, VLDL Cholesterol 18, HDL Cholesterol 37 L Radiography Diagnostic Testing: Radiology Impression Echocardiogram 10/30/21 16:37 Interpretation Summary The estimated ejection fraction is 65 %. No evidence for diastolic dysfunction. Trivial mitral valve insufficiency. Bubble contrast study negative for right to left interatrial shunt. 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 Electronically Signed: Montana Mac MD at 11:34 EDT , Rhythm Strip Rhythm Strip: Sinus Tach Rate: 105 Ectopy: None Physical Exam Narrative Physical Examination: General: Awake, alert, oriented x 3, appears improved from day prior, patient notes frontal headache has improved, still 2 out of 10 but significantly lessening, less pressure. Skin: Normal color, normal turgor, no icterus, no cyanosis. HEENT: AT/NC, EOMI, PERRLA, mildly dry MM, continue resolved left facial droop, still mild erythema to the OP with stippling, less tenderness to palpation of the frontal sinus region Lungs: Diminished, greater bases, moderate effort, no rales, ronchi or wheezing. Heart: Regular rate with regular rhythm; no gallop, rub audible. Abdomen: Soft, obese, NTTP, ND, normal BS. Extremities: No cyanosis, clubbing, or edema. Neurological: Patient awake, alert, oriented as noted, cognitive function improved, back to baseline; pupils equally reactive to light and accommodation, cranial nerves grossly normal, completely resolved mild left-sided facial droop, moving all extremities, prior left-sided mild hemiplegia is resolved, equivocal Babinski, no further neglect, still mild headache although 2 out of 10, improved. Psychiatric: Affect appears improved, no acute evidence of depressive or anxiety feelings. Assessment & Plan Assessment/Plan (1) Acute ischemic right MCA stroke: PLAN: The patient is a 66 y/o F w/ PMHx: Anxiety and Depression, Obesity, HTN who presents to the [facility] ED on 10/30/21 with history of onset headache starting approximately 2100 the day prior with increasing fatigue, lethargy noted to have been on shift from 5 PM to 10 PM last night but unclear exactly when onset of neurological symptoms occurred with significant left-sided upper and lower extremity weakness with hemineglect as well as facial droop found in her car and awoken with unclear deficits following and potential return to home prior to noted deficits, therefore eventually transitioned to the ED. #1. Left-sided weakness, facial droop, unclear etiology, Acute CVA RULED OUT, possible New Onset Complex Migraine versus Seizure, confounded by suspected concurrent Acute Sinus Infection: Admitted to PCU, MRI Brain w/ no acute evidence of infarction, 10/31/21 w/ ECHO w/ EF 65%, no evidence diastolic dysfunction, trivial MVI, bubble contrast study negative for R->L interarterial shunt. 10/31/21 notable admission neurological symptoms completely resolved; however, KEVIN ongoing. 10/31/21 Given patient worsened frontal headache and pain with pressure with postnasal drip and OP mild erythema initiated and continued on Augmentin and Flonase regimen as certainly could also be contributing. 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 10/31/21 EEG performed, awaiting results. Patient started and maintained on IV VPA 500mg Q6 hours, IV Decadron 4mg Q6 hours, IV Toradol 15 mg q 8h x 5 doses as well as low dose neurontin 100 mg TID for possible migraine per discussion with Neurology which will be continued given she has been improving but still could have 10 in severity as far as headaches concern. Magnesium 1.8, TSH 0.48, FLP w/ TG 88, T cholesterol 160, LDL 105, VLDL 18, HDL 37, hemoglobin A1c 5.7% consistent with low end pre-diabetes mellitus type II. If upon repeat evaluation 11/02/2021 resolution of headache and no obvious findings of seizure on EEG would consider discharge to home on Depakote ER 500 mg nightly, low-dose Neurontin 3 times daily with meals for 1 week, Medrol Dosepak with follow-up with neurology. #2. Evidence Pre-Diabetes mellitus: HgbA1c 5.7%, will transition to ADA diet, will hold on accu checks/ISS. #3. Hypertension: BP normal range, no home regimen but low threshold to add if needed, PRN IV hydralazine. #4. Anxiety and depression: We will continue escitalopram and bupropion if oral intake allowed following swallow evaluation. #5. Obesity: Weight loss and lifestyle changes encouraged, nutrition consulted. #6. DVT prophylaxis: SCDs, Lovenox. Charges/Coding Visit Charges Inpatient E&M: 33404 Subs Hosp L2
[2021-11-01] MEDS: Ketorolac 15 MG/ML Vial IV ×3 (05:52→22:34)
[2021-11-01] MEDS: 0.9% Saline Lock 10 ML Syringe IV ×5 (06:03→22:36)
[2021-11-01] MEDS: Enoxaparin 40 MG/0.4 ML Syringe SC (06:06)
[2021-11-01] MEDS: buPROPion (XL) 150 MG TABLET.XL PO (06:08)
[2021-11-01] MEDS: Aspirin 81 MG TAB.CHEW PO (06:08)
[2021-11-01] MEDS: Gabapentin 100 MG Capsule PO ×3 (06:08→17:40)
[2021-11-01] MEDS: Fluticasone 0.05% 1 SPRAY NASAL.SRY NASAL ×2 (06:09→22:35)
[2021-11-01] MEDS: Amox/Clavulanate 875 MG Tablet PO ×2 (07:42→22:35)
[2021-11-01] MEDS: Escitalopram Oxalate 10 MG Tablet 30 MG PO (07:42)
--- NOTE | 2021-11-01 07:44 | NURSING ---
1000 medications given early per MD order.
[2021-11-01 08:05] LABS: Absolute Lymphocyte Count 1.27 X10^3/uL (0.83-4.51); Absolute Neutrophil Count 16.4 X10^3/uL (2.0-7.7); Basophil# 0.02 X10^3/uL; Basophil% 0.1 % (0-1); Hematocrit 39.7 % (37-47); Hemoglobin 13.4 g/dL (12.0-15.0); Lymphocyte # 1.27 X10^3/ul (0.83-4.51); Lymphocyte % 7.1 % (19-41); Mean Corp Hgb Conc 33.8 g/dL (32-36); Mean Corpuscular Hgb 29.5 pg (27.0-32.0); Mean Corpuscular Volume 87.3 fL (81-99); Mean Platelet Vol. 10.3 fl (6.2-12.0); Monocyte# 0.17 X10^3/uL; Monocyte% 0.9 % (0-10); NRBC Flagged by Analyzer 0 % (0-5); Neutrophil # 16.35 X10^3/uL (2.7-7.7); Neutrophil % 91.4 % (47-70); Platelet Count 251 K/mm3 (150-450); RBC Distribution Width CV 12.4 % (11.6-14.6); RBC Distribution Width SD 39.6 fl (35.1-43.9); Red Blood Count 4.55 M/mm3 (4.2-5.4); White Blood Count 17.9 K/mm3 (4.4-11.0)
[2021-11-01 08:21] LABS: AST(SGOT) 14 U/L (15-37); Alanine Aminotransfer ALT/SGPT 24 U/L (13-56); Albumin, Serum 3.1 g/dL (3.2-5.0); Alkaline Phosphatase 62 U/L (45-117); Anion Gap 8 (5-15); BUN 17 mg/dL (7-18); BUN/Creat Ratio 21.1 RATIO (10-20); Calcium,Total 8.8 mg/dL (8.5-10.1); Chloride 110 mmol/L (98-107); Creatinine, Serum 0.81 mg/dL (0.55-1.02); EST Glomerular Filtration Rate 75 mL/min (>60); Est Glom Filt Rate - Afr Amer 91 mL/min (>60); Globulin 3.2 g/dL (2.2-4.2); Glucose 170 mg/dL (74-106); Potassium 4.5 mmol/L (3.5-5.1); Protein, Total 6.3 g/dL (6.4-8.2); Sodium Level 139 mmol/L (136-145)
[2021-11-01] MEDS: Atorvastatin Calcium 80 MG Tablet PO (22:35)
[2021-11-02] MEDS: dexAMETHasone 4 MG/ML Vial IV ×3 (00:19→11:54)
[2021-11-02] MEDS: 0.9% Saline Lock 10 ML Syringe IV ×3 (00:20→11:54)
[2021-11-02 02:17] VITALS: BMI 39.1
[2021-11-02 03:01] VITALS: PULSE 83
[2021-11-02 04:00] VITALS: BP 135/81; PULSE 90; RESP 16; TEMP 36.9; O2SAT 95
[2021-11-02 07:00] VITALS: PULSE 91
[2021-11-02] MEDS: Escitalopram Oxalate 10 MG Tablet 30 MG PO (08:26)
[2021-11-02] MEDS: Fluticasone 0.05% 1 SPRAY NASAL.SRY NASAL (08:26)
[2021-11-02] MEDS: Aspirin 81 MG TAB.CHEW PO (08:26)
[2021-11-02] MEDS: Enoxaparin 40 MG/0.4 ML Syringe SC (08:27)
[2021-11-02] MEDS: Gabapentin 100 MG Capsule PO ×2 (08:27→11:54)
[2021-11-02] MEDS: Amox/Clavulanate 875 MG Tablet PO (08:27)
[2021-11-02] MEDS: buPROPion (XL) 150 MG TABLET.XL PO (08:27)
--- NOTE | 2021-11-02 08:44 | PN.HOSP_ITS ---
Subjective Subjective Feels good: no further left sided weakness nor headache. Gets headaches periodically during spring and summer due to sinus infections, but not to this extent. Objective Data Objective Data Vital Signs: Vital Signs Temp Pulse Resp BP Pulse Ox 36.9 C 91 16 135/81 H 95 11/02/21 04:00 11/02/21 07:00 11/02/21 04:00 11/02/21 04:00 11/02/21 04:00 Oxygen Delivery Method Room Air Weight: 97.6 kg Body Mass Index (BMI) 39.1 Intake & Output: Intake and Output for Last 24 Hours 10/31/21 11/01/21 11/02/21 23:59 23:59 23:59 Intake Total 1790.00 / 2230.00 1860 / 1860 110 / 110 Balance 1790.00 / 2230.00 1860 / 1860 110 / 110 Lab / Micro Data Result Diagrams: 11/01/21 07:35 11/01/21 07:35 Rhythm Strip Rhythm Strip: Sinus Tach Rate: 105 Ectopy: None Physical Exam Const alert and no apparent distress HEENT head/scalp atraumatic Head and Scalp: normocephalic Eyes EOMs intact bilaterally Neuro oriented x3, CN's II-XII intact bilaterally, moves all extremities and no sensory deficits noted Sensorium / Orientation: awake and alert Motor Exam: strength 5/5 throughout Assessment & Plan Assessment/Plan (1) Acute ischemic right MCA stroke: PLAN: The patient is a 66 y/o F w/ PMHx: Anxiety and Depression, Obesity, HTN who presents to the [facility] ED on 10/30/21 with history of onset headache starting approximately 2100 the day prior with increasing fatigue, lethargy noted to have been on shift from 5 PM to 10 PM last night but unclear exactly when onset of neurological symptoms occurred with significant left-sided upper and lower extremity weakness with hemineglect as well as facial droop found in her car and awoken with unclear deficits following and potential return to home prior to noted deficits, therefore eventually transitioned to the ED. 1. Left-sided weakness, facial droop, unclear etiology, * Acute CVA RULED OUT, * possible New Onset Complex Migraine versus Seizure, confounded by suspected concurrent Acute Sinus Infection: * MRI Brain w/ no acute evidence of infarction. MRV negative * ECHO w/ EF 65%, no evidence diastolic dysfunction, trivial MVI, bubble contrast study negative for R->L interarterial shunt. * EEG negative * * 10/31/21 notable admission neurological symptoms completely resolved; however, KEVIN ongoing. 10/31/21 Given patient worsened frontal headache and pain with pressure with postnasal drip and OP mild erythema initiated and continued on Augmentin and Flonase regimen as certainly could also be contributing. 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 10/31/21 EEG performed, awaiting results. Patient started and maintained on IV VPA 500mg Q6 hours, IV Decadron 4mg Q6 hours, IV Toradol 15 mg q 8h x 5 doses as well as low dose neurontin 100 mg TID for possible migraine per discussion with Neurology which will be continued given she has been improving but still could have 10 in severity as far as headaches concern. Magnesium 1.8, TSH 0.48, FLP w/ TG 88, T cholesterol 160, LDL 105, VLDL 18, HDL 37, hemoglobin A1c 5.7% consistent with low end pre-diabetes mellitus type II. If upon repeat evaluation 11/02/2021 resolution of headache and no obvious findings of seizure on EEG would consider discharge to home on Depakote ER 500 mg nightly, low-dose Neurontin 3 times daily with meals for 1 week, Medrol Dosepak with follow-up with neurology. 2. Evidence Pre-Diabetes mellitus: HgbA1c 5.7%, will transition to ADA diet, will hold on accu checks/ISS. 3. Hypertension: BP normal range, no home regimen but low threshold to add if needed, PRN IV hydralazine. 4. Anxiety and depression: We will continue escitalopram and bupropion if oral intake allowed following swallow evaluation. 5. Obesity: Weight loss and lifestyle changes encouraged, nutrition consulted. 6. DVT prophylaxis: SCDs, Lovenox. DC home.
--- NOTE | 2021-11-02 10:02 | PCM.DC ---
Discharge Instructions Diet Discharge Diet: Low fat / Low cholesterol Dressing / Incision Call your doctor if you observe: - (unilateral weakness. intractable headache. ) Follow Up Care Test Results: Test results from this visit will be discussed in further detail at your follow-up appointment, if applicable. Discharge Plan Admission Admit Date/Time: 10/30/21 14:43 Primary Reason for Your Visit: complex migraine. Attending Provider: Maciel Levin Primary Care Provider: Sherwin Torres Consulting Providers: Alison Gipson Discharge Orders/Prescriptions Prescriptions: New gabapentin 100 mg Capsule 100 mg PO TIDCM Qty: 20 RF: 0 amoxicillin-pot clavulanate 875-125 mg tablet 1 tab PO BID Qty: 10 RF: 0 divalproex [Depakote ER] 500 mg tablet extended release 24 hr 500 mg PO QHS Qty: 30 RF: 0 methylprednisolone [Medrol (Angel)] 4 mg tablets,dose pack 4 mg PO DAILY Qty: 21 RF: 0 Continued escitalopram oxalate 20 MG tablet 30 mg PO DAILY RF: 0 bupropion HCl 300 MG tablet extended release 24 hr 150 mg PO DAILY RF: 0 Referrals / Follow Up: Sherwin Torres DO [Primary Care Provider] - Within 2 Weeks Ji Cannon MD [NON-STAFF] - Within 1 Month (atypical migraine) Disposition Disposition (needs filled in before D/C Order can be placed): Home, Self Care
--- NOTE | 2021-11-02 10:07 | PCM.DC.SUM ---
Providers Date of Admission: 10/30/21 Primary Care Physician: Dr. Sherwin Torres, DO Reason For Visit: ACUTE CVA Diagnosis Discharge Diagnosis (1) Acute ischemic right MCA stroke: Status: Acute Code(s): I63.511 - Cerebral infarction due to unspecified occlusion or stenosis of right middle cerebral artery Medications at Discharge Home Medications bupropion HCl 150 mg PO DAILY 11/22/18 escitalopram oxalate 30 mg PO DAILY 11/22/18 amoxicillin-pot clavulanate 1 tab PO BID #10 tab 11/02/21 divalproex [Depakote ER] 500 mg PO QHS #30 tab 11/02/21 gabapentin 100 mg PO TIDCM #20 cap 11/02/21 methylprednisolone [Medrol (Angel)] 4 mg PO DAILY #21 tab 11/02/21 Hospital Course Operations None Procedures 2-D Echocardiogram Summary of Care Provided Minutes Spent on Discharge: 35 Hospital Course: The patient is a 66 y/o F w/ PMHx: Anxiety and Depression, Obesity, HTN who presents to the [facility] ED on 10/30/21 with history of onset headache starting approximately 2100 the day prior with increasing fatigue, lethargy noted to have been on shift from 5 PM to 10 PM last night but unclear exactly when onset of neurological symptoms occurred with significant left-sided upper and lower extremity weakness with hemineglect as well as facial droop found in her car and awoken with unclear deficits following and potential return to home prior to noted deficits, therefore eventually transitioned to the ED. stroke was ruled out. This is due to a complex migraine precipitated by an acute sinus infection. Patient underwent an extensive work-up including MRI of the brain and MRV which were both negative. Patient will be on Depakote and a short course of methylprednisolone and gabapentin. Patient will follow up with neurology as outpatient for long-term management. Patient has had headaches periodically but never to the extreme that this case was. 1. Left-sided weakness, facial droop, unclear etiology, Acute CVA RULED OUT, possible New Onset Complex Migraine versus Seizure, confounded by suspected concurrent Acute Sinus Infection: MRI Brain w/ no acute evidence of infarction. MRV negative ECHO w/ EF 65%, no evidence diastolic dysfunction, trivial MVI, bubble contrast study negative for R->L interarterial shunt. EEG negative 10/31/21 notable admission neurological symptoms completely resolved; however, KEVIN ongoing. 10/31/21 Given patient worsened frontal headache and pain with pressure with postnasal drip and OP mild erythema initiated and continued on Augmentin and Flonase regimen as certainly could also be contributing. 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 10/31/21 EEG performed, awaiting results. Patient started and maintained on IV VPA 500mg Q6 hours, IV Decadron 4mg Q6 hours, IV Toradol 15 mg q 8h x 5 doses as well as low dose neurontin 100 mg TID for possible migraine per discussion with Neurology which will be continued given she has been improving but still could have 10 in severity as far as headaches concern. Magnesium 1.8, TSH 0.48, FLP w/ TG 88, T cholesterol 160, LDL 105, VLDL 18, HDL 37, hemoglobin A1c 5.7% consistent with low end pre-diabetes mellitus type II. If upon repeat evaluation 11/02/2021 resolution of headache and no obvious findings of seizure on EEG would consider discharge to home on Depakote ER 500 mg nightly, low-dose Neurontin 3 times daily with meals for 1 week, Medrol Dosepak with follow-up with neurology. 2. Evidence Pre-Diabetes mellitus: HgbA1c 5.7%, will transition to ADA diet, will hold on accu checks/ISS. 3. Hypertension: BP normal range, no home regimen but low threshold to add if needed, PRN IV hydralazine. 4. Anxiety and depression: We will continue escitalopram and bupropion if oral intake allowed following swallow evaluation. 5. Obesity: Weight loss and lifestyle changes encouraged, nutrition consulted. Weight / BMI Weight Weight: 97.6 kg Body Mass Index (BMI) 39.1 ABG / Lab / Microbiology Data Result Diagrams: 11/01/21 07:35 11/01/21 07:35 D/C Instructions Discharge Diet: Low fat / Low cholesterol Call your doctor if you observe: - (unilateral weakness. intractable headache. ) Meaningful Use Info Meaningful Use Diagnoses (Choose all that apply): None applicable Discharge Plan Admission Admit Date/Time: 10/30/21 14:43 Primary Reason for Your Visit: complex migraine. Attending Provider: Maciel Levin Primary Care Provider: Sherwin Torres Consulting Providers: White,Alison L Discharge Orders/Prescriptions Prescriptions: New gabapentin 100 mg Capsule 100 mg PO TIDCM Qty: 20 RF: 0 amoxicillin-pot clavulanate 875-125 mg tablet 1 tab PO BID Qty: 10 RF: 0 divalproex [Depakote ER] 500 mg tablet extended release 24 hr 500 mg PO QHS Qty: 30 RF: 0 methylprednisolone [Medrol (Angel)] 4 mg tablets,dose pack 4 mg PO DAILY Qty: 21 RF: 0 Continued escitalopram oxalate 20 MG tablet 30 mg PO DAILY RF: 0 bupropion HCl 300 MG tablet extended release 24 hr 150 mg PO DAILY RF: 0 Referrals / Follow Up: Sherwin Torres DO [Primary Care Provider] - Within 2 Weeks Ji Cannon MD [NON-STAFF] - Within 1 Month (atypical migraine) Disposition Disposition (needs filled in before D/C Order can be placed): Home, Self Care Charges/Coding Visit Charges Inpatient E&M: 13663 Disch Hosp
[2021-11-02 10:15] VITALS: BP 137/60; PULSE 99; RESP 18; TEMP 36.9; O2SAT 98
--- NOTE | 2021-11-02 10:39 | CASEMGMT ---
Therapy recommends no further therapy for pt at discharge. OP script provided to pt per her request. Pt voices no further questions/concerns/needs. [facility] KIDD CM
--- NOTE | 2021-11-02 11:26 | PHA.DC.MC ---
Pharmacy Service has performed discharge medication reconciliation and counseling for this patient. 1. AUGMENTIN 875MG PO BID X 5 DAYS 2. DIVALPROEX ER 500MG PO QHS 3. GABAPENTIN 100MG PO TIDCM X 1 WEEK 4. MEDROL DOSE PACK The patient's discharge medication list was reviewed for discrepancies and discrepancies were resolved. Home Medications bupropion HCl 150 mg PO DAILY 11/22/18 escitalopram oxalate 30 mg PO DAILY 11/22/18 amoxicillin-pot clavulanate 1 tab PO BID #10 tab 11/02/21 divalproex [Depakote ER] 500 mg PO QHS #30 tab 11/02/21 gabapentin 100 mg PO TIDCM #20 cap 11/02/21 methylprednisolone [Medrol (Angel)] 4 mg PO DAILY #21 tab 11/02/21 The patient was counseled on the following discharge medications and changes in medications for homegoing were reviewed. The Reason for Use, instructions for use, and potential side effects were reviewed for all new medications. The patient's questions regarding all of their medications were answered. The patient was able to verbally demonstrate an understanding of their discharge medications.
[2021-11-02 13:02] VITALS: BMI 39.1
== END 2021-11-02 13:56 | disposition home or self-care (01) | DRG 103 ==
LOC: ED 14:29 → PCU 14:58
PROVIDERS: Admitting Provider Family Medicine; Emergency Provider Emergency Medicine; PCP Student in an Organized Health Care Education/Training Program
DX: G43.909 Migraine, unspecified, not intractable, without status migrainosus (principal); E66.9 Obesity, unspecified; R56.9 Unspecified convulsions; I10 Essential (primary) hypertension; F41.9 Anxiety disorder, unspecified; J01.90 Acute sinusitis, unspecified; R29.818 Other symptoms and signs involving the nervous system; R29.810 Facial weakness; F32.A Depression, unspecified; R73.03 Prediabetes; Z68.39 Body mass index [BMI] 39.0-39.9, adult; Z79.899 Other long term (current) drug therapy
CPT/HCPCS: 36415; 70450; 70496; 70498; 70544; 70551; 71045; 80048; 80053; 80061; 83036; 83735; 84443; 84484; 85025; 85610; 85730; 92523; 92610; 93005; 93306; 94762; 95819; 97162; 97165; 97530; 97802; 99251; 99285; J7030; Q9957; Q9967; A4216; C8929; G0463; J2405

== ENCOUNTER → 2022-02-01 | Outpatient (CLI) | payer MEDICARE, SELFPAY | END | disposition home or self-care (01) | LOC: SL 19:56 | PROVIDERS: PCP Student in an Organized Health Care Education/Training Program; Referring Provider Psychiatry & Neurology Sleep Medicine; Visit Provider Psychiatry & Neurology Sleep Medicine | DX: G47.30 Sleep apnea, unspecified (principal); R51.9 Headache, unspecified | CPT/HCPCS: 95810 ==

== ENCOUNTER 2024-04-20 08:25 | Emergency (ER) | payer MEDICARE, SELFPAY ==
[2024-04-20 08:25] VITALS: BP 191/78; BP 193/80; PULSE 82; PULSE 87; RESP 16; TEMP 36.2; O2SAT 99
[2024-04-20 08:41] VITALS: BMI 39.4
[2024-04-20] MEDS: Diphth,Pertuss(Acell),Tet Vac 0.5 ML Vial IM (10:11)
[2024-04-20 10:25] VITALS: BP 163/91; PULSE 98; RESP 16; O2SAT 99
== END 2024-04-20 11:01 | disposition home or self-care (01) ==
PROVIDERS: Emergency Provider Emergency Medicine; PCP Student in an Organized Health Care Education/Training Program; Visit Provider Emergency Medicine
DX: S01.112A Laceration without foreign body of left eyelid and periocular area, initial encounter (principal); S02.32XA Fracture of orbital floor, left side, initial encounter for closed fracture; Z23 Encounter for immunization; Z86.73 Personal history of transient ischemic attack (TIA), and cerebral infarction without residual deficits; W19.XXXA Unspecified fall, initial encounter
CPT/HCPCS: 70450; 72125; 90471; 90715; 99282

== ENCOUNTER 2024-04-21 07:07 | Emergency (ER) | payer MEDICARE, SELFPAY ==
[2024-04-21 07:08] VITALS: BP 153/78; PULSE 84; RESP 16; TEMP 37.1; O2SAT 98; BMI 40.7
[2024-04-21] MEDS: HYDROcodone Bitartrate/Apap 5/325 Tablet PO (09:25)
[2024-04-21 09:26] VITALS: BP 135/82; PULSE 76; RESP 15; TEMP 36.4; O2SAT 96
[2024-04-21 09:32] VITALS: O2SAT 96
== END 2024-04-21 09:34 | disposition home or self-care (01) ==
PROVIDERS: Emergency Provider Surgery; PCP Student in an Organized Health Care Education/Training Program; Visit Provider Surgery
DX: S40.011A Contusion of right shoulder, initial encounter (principal); S16.1XXA Strain of muscle, fascia and tendon at neck level, initial encounter; W19.XXXA Unspecified fall, initial encounter; Z86.73 Personal history of transient ischemic attack (TIA), and cerebral infarction without residual deficits
CPT/HCPCS: 73030; 99284